=== PATIENT | male | born 1985 | race Caucasian/White ===

== ENCOUNTER 2025-03-31 16:36 | Emergency (ER) | payer SELFPAY ==
[~2025-03-31] VITALS: Ht 177.8 cm; Wt 91.0 kg
[2025-03-31 16:38] VITALS: O2SAT 100
[2025-03-31] MEDS: IBUPROFEN 800MG TABLET PO ONE (18:16)
[2025-03-31] MEDS ORDERED: NAPR-1495 MT (18:22)
[2025-03-31 18:30] VITALS: BP 131/71; PULSE 66; RESP 18; TEMP 36.7; O2SAT 100
== END 2025-03-31 18:32 | disposition home or self-care (01) ==
LOC: ER 16:36
DX: S20.219A Contusion of unspecified front wall of thorax, initial encounter (principal); R07.89 Other chest pain; Z79.1 Long term (current) use of non-steroidal anti-inflammatories (NSAID); Z79.899 Other long term (current) drug therapy; V89.2XXA Person injured in unspecified motor-vehicle accident, traffic, initial encounter; Y93.89 Activity, other specified; Y92.410 Unspecified street and highway as the place of occurrence of the external cause; Y99.8 Other external cause status
CPT/HCPCS: 71045; 93005; 99283